=== PATIENT | female | born 1950 | race Caucasian/White ===

== ENCOUNTER → 2018-02-05 13:33 | Outpatient (REF) | payer SELFPAY | LOC: OM 13:33 | PROVIDERS: PCP Nurse Practitioner; Visit Provider Nurse Practitioner Family | DX: Z02.79 Encounter for issue of other medical certificate (principal) ==

== ENCOUNTER → 2018-02-18 08:58 | Outpatient (CLI) | payer MEDICARE, OTHER, SELFPAY ==
--- NOTE | 2018-02-18 09:02 | MERGE_ITS ---
*[facility]* *[facility]* [address] [place] [address] Date of study: 02/18/2018 Transthoracic Echocardiography M-mode, complete 2D, complete spectral Doppler, and color Doppler *STUDY CONCLUSIONS* Summary: 1. Left ventricle: The cavity size was normal. Wall thickness was normal. Systolic function was normal. The estimated ejection fraction was 60-65%. Wall motion was normal; there were no regional wall motion abnormalities. Some parameters suggest diastolic dysfunction. 2. Aortic valve: Sclerosis without stenosis. There was mild regurgitation. 3. Mitral valve: There was mild regurgitation. 4. Right ventricle: The cavity size was normal. Wall thickness was normal. Systolic function was normal. 5. Pulmonary arteries: Pulmonary systolic pressure was increased, in the range of 40mm Hg to 45mm Hg. *PATIENT PRESENTATION* Height: 157.5cm ((62in) ) S/D Pressure: 168 / 72 Weight: 86.2kg ((189.6lb) ) BSA: 1.98m^2 Test start time: 09:15 AM. Test stop time: 10:00 AM. PERFORMING Unknown PERFORMING [facility] DIRECTOR OF PUBLIC WORKS RT Jeronimo Huang)(CT), [facility] ORDERING Kellie Manjarrez Joyce A *PROCEDURE DATA* Procedure information: The patient was identified by two identifiers. This study was interpreted by [facility]. Pertinent images and digital data are archived for permanent storage and are available for subsequent review. Comparison was made to the study of 04/21/2012. Study status: Routine. Transthoracic echocardiography. M-mode, complete 2D, complete spectral Doppler, and color Doppler. A Transthoracic Echocardiogram was performed. Scanning was performed from the parasternal, apical, subcostal, and suprasternal notch acoustic windows. Images were obtained using an [id number] cardiac ultrasound machine. Image quality was adequate. Study completion: The patient tolerated the procedure well. There were no complications. History: PMH: Cardiac murmur. *CARDIAC ANATOMY* Left ventricle: The cavity size was normal. Wall thickness was normal. Systolic function was normal. The estimated ejection fraction was 60-65%. Wall motion was normal; there were no regional wall motion abnormalities. Some parameters suggest diastolic dysfunction. Aortic valve: Trileaflet; mildly thickened leaflets. Sclerosis without stenosis. Mobility was not restricted. Doppler: Transvalvular velocity was within the normal range. There was no stenosis. There was mild regurgitation. VTI ratio of LVOT to aortic valve: 0.5. Valve area (VTI): 1.6cm^2. Indexed valve area (VTI): 0.8cm^2/m^2. Peak velocity ratio of LVOT to aortic valve: 0.42. Valve area (Vmax): 1.4cm^2. Indexed valve area (Vmax): 0.7cm^2/m^2. Mean velocity ratio of LVOT to aortic valve: 0.48. Valve area (Vmean): 1.6cm^2. Indexed valve area (Vmean): 0.8cm^2/m^2. Mean gradient (S): 8.9mm Hg. Peak gradient (S): 20.2mm Hg. Aorta: Aortic root: The aortic root was normal in size. Ascending aorta: The ascending aorta was normal in size. Mitral valve: Mildly thickened leaflets. Mobility was not restricted. Doppler: Transvalvular velocity was within the normal range. There was no evidence for stenosis. There was mild regurgitation. Valve area by pressure half-time: 3.8cm^2. Indexed valve area by pressure half-time: 1.9cm^2/m^2. Peak gradient (D): 2.7mm Hg. Left atrium: The atrium was normal in size. Right ventricle: The cavity size was normal. Wall thickness was normal. Systolic function was normal. Pulmonic valve: Doppler: Transvalvular velocity was within the normal range. There was no evidence for stenosis. There was no significant regurgitation. Tricuspid valve: Structurally normal valve. Doppler: Transvalvular velocity was within the normal range. There was no evidence for stenosis. There was mild regurgitation. Pulmonary artery: Pulmonary systolic pressure was increased, in the range of 40mm Hg to 45mm Hg. Right atrium: The atrium was normal in size. Pericardium: There was no pericardial effusion. Systemic veins: Inferior vena cava: Not well visualized. The vessel was patent and normal in size. The respirophasic diameter changes were in the normal range (greater than or equal to 50%). Baseline ECG: Normal sinus rhythm. Measurements Left ventricle Value Reference LV ID, ED, PLAX 5.2 cm 3.5 - 6.0 LV ID, ES, PLAX 3.5 cm 2.1 - 4.0 LV PW thickness, ED, PLAX 0.9 cm LV end-diastolic volume, 1-p A2C 105 ml LV ejection fraction, 1-p A2C 65 % LV end-diastolic volume, 1-p A4C 70 ml LV ejection fraction, 1-p A4C 62 % LV e', lateral 0.102 m/sec LV E/e', lateral 8 LV e', medial 0.073 m/sec LV E/e', medial 11 LV e', average 0.088 m/sec LV E/e', average 9 Ventricular septum Value Reference IVS thickness, ED, PLAX 0.9 cm LVOT Value Reference LVOT ID, A-P 2.0 cm LVOT area 3.3 cm^2 LVOT peak velocity, S 0.95 m/sec LVOT mean velocity, S 0.68 m/sec LVOT VTI, S 22.2 cm LVOT peak gradient, S 3.6 mm Hg LVOT mean gradient, S 2.1 mm Hg Stroke volume (SV), LVOT DP 72 ml Stroke index (SV/bsa), LVOT DP 36 ml/m^2 Aortic valve Value Reference Aortic valve peak velocity, S 2.2 m/sec Aortic valve mean velocity, S 1.4 m/sec Aortic valve VTI, S 44.7 cm Aortic mean gradient, S 8.9 mm Hg Aortic peak gradient, S 20.2 mm Hg VTI ratio, LVOT/AV 0.5 Aortic valve area, VTI 1.6 cm^2 Velocity ratio, peak, LVOT/AV 0.42 Aortic valve area, peak velocity 1.4 cm^2 Velocity ratio, mean, LVOT/AV 0.48 Aortic valve area, mean velocity 1.6 cm^2 Aortic valve area/bsa, mean velocity 0.8 cm^2/m^2 Aorta Value Reference Aortic root ID, ED 2.8 cm Ascending aorta ID, A-P, S 3.0 cm Left atrium Value Reference LA ID, A-P, ES 3.3 cm LA ID/bsa, A-P 1.7 cm/m^2 <=2.2 LA area, ES, A4C 17.7 cm^2 8.8 - 23.4 LA area, ES, A2C 19 cm^2 LA volume/bsa, ES, 1-p A4C 30 ml/m^2 LA volume, ES, 2-p 54 ml LA volume/bsa, ES, 2-p 27 ml/m^2 LA/aortic root ratio 1.19 Mitral valve Value Reference Mitral E-wave peak velocity 0.82 m/sec Mitral A-wave peak velocity 0.74 m/sec Mitral deceleration time 202 ms 150 - 230 Mitral pressure half-time 59 ms Mitral peak gradient, D 2.7 mm Hg Mitral E/A ratio, peak 1.11 Mitral valve area, PHT, DP 3.8 cm^2 Pulmonary veins Value Reference Pulmonary vein peak velocity, S 0.64 m/sec Pulmonary vein peak velocity, D 0.66 m/sec Pulmonary vein velocity ratio, peak, 0.97 S/D Pulmonary vein A-wave reversal peak 0.47 m/sec velocity Pulmonary vein A-wave reversal 144 ms duration Tricuspid valve Value Reference Tricuspid regurg peak velocity 3.4 m/sec Tricuspid peak RV-RA gradient 46.4 mm Hg Right atrium Value Reference RA area, ES, A4C 16 cm^2 8.3 - 19.5 Legend: (L) and (H) demarco values outside specified reference range. I have personally reviewed the images and have reviewed and edited the reported findings. Electronically signed by Alan Goetz 02/18/2018 11:27
== END ==
PROVIDERS: PCP Nurse Practitioner; Visit Provider Nurse Practitioner
DX: R01.1 Cardiac murmur, unspecified (principal); I08.0 Rheumatic disorders of both mitral and aortic valves
CPT/HCPCS: 93306

== ENCOUNTER 2018-04-20 15:24 | Outpatient (CLI) | payer MEDICARE, OTHER, SELFPAY ==
--- NOTE | 2018-04-20 11:38 | DI.RAD_ITS ---
SYMPTOM/DIAGNOSIS: THORACIC BACK PAIN, M54.6, H/O RIB FX, Z87.81 PA AND LATERAL CHEST AND RIGHT RIBS: The heart size is normal. The lungs are clear. No pneumothorax, infiltrate or effusion is seen. There are subacute or old appearing fractures of the right third through fifth ribs posteriorly and anterior fifth or seventh ribs. Additional fractures were demonstrated by previous CT which are not definitely visible. IMPRESSION: Old right rib fractures. No acute abnormality. THORACIC SPINE: No compression fractures are seen. There are endplate osteophytes. There is mild narrowing of the anterior disc spaces. The alignment appears normal. IMPRESSION: Degenerative changes. No evidence of fracture.
== END 2018-04-20 15:44 ==
PROVIDERS: PCP Nurse Practitioner; Visit Provider Nurse Practitioner
DX: M54.6 Pain in thoracic spine (principal); Z87.81 Personal history of (healed) traumatic fracture; M47.814 Spondylosis without myelopathy or radiculopathy, thoracic region
CPT/HCPCS: 71046; 71100; 72072

== ENCOUNTER 2018-12-04 07:47 | Outpatient (CLI) | payer MEDICARE, OTHER, SELFPAY ==
[2018-12-04 08:11] LABS: HCT 47.1 % (36.0-46.0); HGB 15.6 g/dL (12.0-15.5); Mean Corp. HGB Concentration 33.1 g/dL (32.0-36.0); Mean Corpuscular Hemoglobin 28.6 pg (27.0-33.0); Mean Corpuscular Volume 86.3 fL (80-95); Platelet Count 262 x1000/uL (130-400); RBC 5.46 m/cumm (4.00-5.20); RBC Distribution Width 13.5 % (11.7-14.6); White Blood Cell Count 8.53 k/cumm (4.4-10.8)
[2018-12-04 08:24] LABS: Hemoglobin A1C 5.8 % (4.5-6.2)
[2018-12-04 09:15] LABS: ALT 29 U/L (12-78); AST 18 U/L (15-37); Albumin 3.7 g/dL (3.4-5.0); Alkaline Phosphatase 107 U/L (46-116); Anion Gap 10.6 mmol/L (3-11); BUN 13 mg/dL (7-18); Bilirubin, Total 0.5 mg/dL (0.2-1.0); CO2 27.4 mmol/L (21.0-32.0); CREATININE 0.87 mg/dL (0.55-1.02); Calcium 8.7 mg/dL (8.5-10.1); Calculated LDL 109; Chloride 105 mmol/L (98-107); Cholesterol 173 mg/dL (50-200); Glucose 95 mg/dL (70-100); HDL Cholesterol 41 mg/dL (40-60); Potassium 4.2 mmol/L (3.5-5.1); Sodium 143 mmol/L (136-145); Triglyceride 118 mg/dL (30-150)
== END 2018-12-04 08:07 ==
PROVIDERS: PCP Nurse Practitioner; Visit Provider Nurse Practitioner
DX: E66.9 Obesity, unspecified (principal); R73.01 Impaired fasting glucose
CPT/HCPCS: 36415; 80053; 80061; 83721; 85027; 83036

== ENCOUNTER 2019-04-28 08:13 | Outpatient (CLI) | payer MEDICARE, OTHER, SELFPAY ==
[2019-04-28 09:40] LABS: Ferritin 91 ng/mL (8-388)
== END 2019-04-28 08:33 ==
PROVIDERS: PCP Nurse Practitioner; Visit Provider Nurse Practitioner
DX: M25.50 Pain in unspecified joint (principal)
CPT/HCPCS: 36415; 82728

== ENCOUNTER 2019-10-11 10:03 | Outpatient (CLI) | payer MEDICARE, OTHER, SELFPAY | END 2019-10-11 10:23 | PROVIDERS: PCP Nurse Practitioner; Visit Provider Nurse Practitioner | DX: I49.9 Cardiac arrhythmia, unspecified (principal); I47.1 Supraventricular tachycardia; I47.2 Ventricular tachycardia | CPT/HCPCS: 93225 ==

== ENCOUNTER 2019-10-13 08:04 | Outpatient (CLI) | payer MEDICARE, OTHER, SELFPAY ==
--- NOTE | 2019-10-14 08:36 | W.HOLTRPT ---
Date of service: 10/14/19 Time of Service: 08:36 Holter Monitor Report Holter Monitor Note: This is a 1 day Holter monitor ordered for the indication of irregular heartbeat. ?Patient was in normal sinus rhythm for the majority of the recording. ?There were 3 episodes of supraventricular tachycardia with the longest lasting 3 beats. There were rare premature atrial contractions. ?There was one episode of ventricular tachycardia which lasted a total of 5 beats at a rate of 163. ?There were occasional (3%) single ventricular ectopic beats. ?There were no episodes of atrial fibrillation no pauses greater than 3 seconds and no evidence of high degree heart block. ?There were no patient triggered events.
== END 2019-10-13 08:24 ==
PROVIDERS: PCP Nurse Practitioner; Visit Provider Nurse Practitioner
DX: I49.9 Cardiac arrhythmia, unspecified (principal); I47.1 Supraventricular tachycardia; I47.2 Ventricular tachycardia
CPT/HCPCS: 93226

== ENCOUNTER 2019-10-14 08:36 | Outpatient (CLI) | payer MEDICARE, OTHER, SELFPAY | END 2019-10-14 08:56 | PROVIDERS: PCP Nurse Practitioner; Visit Provider Internal Medicine Cardiovascular Disease | DX: I49.9 Cardiac arrhythmia, unspecified (principal); I47.1 Supraventricular tachycardia | CPT/HCPCS: 93227 ==

== ENCOUNTER 2020-01-19 03:56 | Outpatient (CLI) | payer MEDICARE, OTHER, SELFPAY ==
[2020-01-19 07:21] LABS: HGB 15.3 g/dL (12.0-15.5); Mean Corpuscular Hemoglobin 28.5 pg (27.0-33.0); Mean Platelet Volume 9.5 fL (8.0-11.0); Platelet Count 308 x1000/uL (130-400); RBC 5.36 m/cumm (4.00-5.20); RBC Distribution Width 14.1 % (11.7-14.6); White Blood Cell Count 11.86 k/cumm (4.4-10.8)
[2020-01-19 07:58] LABS: Hemoglobin A1C 6.1 % (3.8-5.6)
[2020-01-19 08:14] LABS: ALT 41 U/L (14-59); AST 25 U/L (15-37); Albumin 3.7 g/dL (3.4-5.0); Alkaline Phosphatase 82 U/L (46-116); Anion Gap 6.1 mmol/L (3-11); BUN 15 mg/dL (7-18); Bilirubin, Total 0.6 mg/dL (0.2-1.0); CO2 30.9 mmol/L (21.0-32.0); CREATININE 0.91 mg/dL (0.55-1.02); Calcium 9.3 mg/dL (8.5-10.1); Calculated LDL 102 mg/dL (<100); Chloride 102 mmol/L (98-107); Cholesterol 172 mg/dL (<200); Glucose 113 mg/dL (74-106); HDL Cholesterol 37 mg/dL (40-60); Potassium 3.1 mmol/L (3.5-5.1); Sodium 139 mmol/L (136-145); Total Protein 6.9 g/dL (6.4-8.2); Triglyceride 169 mg/dL (<150)
== END 2020-01-19 04:16 ==
PROVIDERS: PCP Nurse Practitioner; Visit Provider Nurse Practitioner
DX: E66.9 Obesity, unspecified (principal); G47.33 Obstructive sleep apnea (adult) (pediatric); I10 Essential (primary) hypertension; E61.1 Iron deficiency; R73.01 Impaired fasting glucose; R73.09 Other abnormal glucose
CPT/HCPCS: 36415; 80053; 80061; 85027; 83036

== ENCOUNTER → 2020-01-28 09:13 | Outpatient (BNVA) | payer MEDICARE, OTHER, SELFPAY | PROVIDERS: PCP Nurse Practitioner; Referring Provider Nurse Practitioner; Visit Provider Student in an Organized Health Care Education/Training Program | DX: M65.332 Trigger finger, left middle finger (principal) | CPT/HCPCS: 20550; 99203; 99214; J1030 ==

== ENCOUNTER 2020-07-27 03:01 | Outpatient (CLI) | payer MEDICARE, SELFPAY ==
[2020-07-27 10:50] LABS: Anion Gap 5.1 mmol/L (3-11); BUN 17 mg/dL (7-18); CO2 32.9 mmol/L (21.0-32.0); Calcium 9.1 mg/dL (8.5-10.1); Chloride 102 mmol/L (98-107); Estimated GFR 55.14 (mL/min/1.73m2); Glucose 101 mg/dL (74-106); Potassium 3.1 mmol/L (3.5-5.1); Sodium 140 mmol/L (136-145)
== END 2020-07-27 03:21 ==
PROVIDERS: PCP Nurse Practitioner; Visit Provider Nurse Practitioner
DX: R79.89 Other specified abnormal findings of blood chemistry (principal)
CPT/HCPCS: 36415; 80048

== ENCOUNTER → 2020-09-18 10:56 | Outpatient (BNVA) | payer MEDICARE, SELFPAY | PROVIDERS: PCP Nurse Practitioner; Referring Provider Nurse Practitioner; Visit Provider Student in an Organized Health Care Education/Training Program | DX: M65.332 Trigger finger, left middle finger (principal); Z98.890 Other specified postprocedural states | CPT/HCPCS: 99213 ==

== ENCOUNTER 2020-10-04 03:35 | Outpatient (CLI) | payer MEDICARE, SELFPAY ==
[2020-10-04 10:47] LABS: Anion Gap 9.1 mmol/L (3-11); BUN 18 mg/dL (7-18); CO2 29.9 mmol/L (21.0-32.0); Calcium 9.1 mg/dL (8.5-10.1); Chloride 101 mmol/L (98-107); Estimated GFR 55.14 (mL/min/1.73m2); Glucose 180 mg/dL (74-106); Sodium 140 mmol/L (136-145)
[2020-10-04 10:58] LABS: Potassium 2.9 mmol/L (3.5-5.1)
== END 2020-10-04 03:36 | disposition home or self-care (01) ==
LOC: LBO 03:35
PROVIDERS: PCP Nurse Practitioner; Visit Provider Nurse Practitioner
DX: R79.89 Other specified abnormal findings of blood chemistry (principal)
CPT/HCPCS: 36415; 80048

== ENCOUNTER 2020-10-10 06:15 | Day surgery (SDC) | payer MEDICARE, SELFPAY ==
[2020-10-10 06:15] VITALS: BP 147/83; PULSE 66; RESP 16; TEMP 37; O2SAT 98
--- NOTE | 2020-10-10 07:20 | W.PM.DSUDISC ---
Discharge Plan Disposition Patient Disposition: HOME Condition: Good Discharge Details Reason For Visit: LMF Trigger Finger Attending Provider: Eugenio Bella Primary Care Provider: Kellie Manjarrez Home Meds and New Rx's Prescriptions: New acetaminophen 500 mg tablet 1,000 mg PO Q8H PRN (Reason: pain) Qty: 30 RF: 3 Continued ropinirole 1 mg tablet 1 mg PO DAILY PRN (Reason: restless leg(s)) Qty: 90 RF: 3 aspirin 325 mg tablet 650 mg PO DAILY PRN (Reason: pain) RF: 0 ropinirole 2 mg tablet 2 mg PO HS Qty: 90 RF: 3 artifi.tears(hypromellose)(PF) 0.3 % drops See Rx Instructions .ROUTE .COMPLEX PRNRF: 0 chlorthalidone 50 mg tablet 50 mg PO DAILY Qty: 30 RF: 11 potassium chloride 20 mEq tablet extended release 40 meq PO DAILY Qty: 180 RF: 3 Changed ibuprofen 600 MG tablet 600 mg PO Q8H PRN PRNQty: 30 RF: 2 Discharge Instructions Stand Alone Forms: Shayne Burciaga Finger Release Referrals: Eugenio Bella MD [ [facility] STAFF PHYSICIAN] - Activity:: Activity as Tolerated Remove Dressings/Wound Care:: 48 hours Shower/Bathe:: 48 hours Diet:: As Tolerated Discharge Orders Discharge Orders: Discharge Order (Routine); Ordered 10/10/20 Ordered By: Eugenio Bella DS: Diagnosis Discharge Diagnosis (1) Trigger middle finger of left hand: Status: Acute
[2020-10-10] MEDS: Sodium Bicarbonate 50 MEQ/50 ML VIAL (07:25)
--- NOTE | 2020-10-10 07:48 | W.PM.OP ---
Date of service: 10/10/20 Time of Service: 07:48 Operative Note Operative Note DATE OF PROCEDURE: 10/10/20 PRE-OP DIAGNOSIS: Left Middle Finger Trigger Finger POST-OP DIAGNOSIS: same PROCEDURE: Left Middle Finger Trigger Release SURGEON: Eugenio Bella ANESTHESIA TYPE: Local By Surgeon Refer to Anesthesia Record ESTIMATED BLOOD LOSS: 5 PATHOLOGY: none sent TOURNIQUET TIME: 0 COMPLICATIONS: None Patient was transported to: same day Patient's condition: stable Indications: I have seen Carmita in clinic for symptoms of a trigger finger. The catching, clicking, locking, and pain limited function. The diagnosis of trigger finger was evident. The symptoms had not responded to conservative measures. I discussed trigger finger release with the patient. I reviewed the risks of the procedure to include, but not limited to, bleeding, infection, pain, stiffness, incomplete release, damage to nerves or vessels, continued catching, recurrence. Despite these risks, the patient elected to proceed. Findings: There was a tightened A1 kris which was released. The flexor tendons were inspected and the patient was able to move the finger without any catching, clicking, or locking. Procedure Description: Carmita was greeted in the preoperative holding area where the correct side was identified and marked. The consent was reviewed with the patient and signed. All questions were answered. She was taken back to the operating room. The patient was placed into the supine position on the operating room table with the left arm on an arm board. All bony prominences were well padded. No prophylactic antibiotics were administered since this was a clean, elective hand surgical case. The left arm was then prepped with Chloraprep and draped in a standard fashion with stockinette and extremity drape. A timeout to confirm correct identity, side and site, procedure, allergies, anesthesia, and medical concerns was performed. The surgical site was marked as a longitudinal incision directly over the A1 kris of the involved digit. This was confirmed with palpation during finger flexion. This area, overlying the metacarpal head, was then anesthetized with 1% Lidocaine. The patient tolerated this well and once the anesthetic had setup, the procedure began. A longitudinal incision was made through skin only, approximately 1cm. The deep tissues were dissected bluntly. Once the A1 kris and flexor tendons were identified the soft tissue including neurovascular structures were retracted medially and laterally. There were no crossing structures over the A1 kris. The proximal edge of the kris was identified and the kris was incised with tenotomy scissors. There was a release of the tendons once this was fully released. The tendons were then removed from the wound and inspected. Excess synovium was resected. The tendons were then returned and the patient was asked to move the finger into deep flexion and back to extension. There was no recreation of the pre-operative symptoms. The hand was then once more inspected for any A0 kris or area of possible constriction. The wound was then irrigated and the skin was closed with a 4-0 Nylon. This was dressed with gauze and a Conform dressing. The patient tolerated the procedure well and was returned to the Same Day Surgery area in a stable condition suffering no known complication.
== END 2020-10-10 08:05 | disposition home or self-care (01) ==
PROVIDERS: PCP Nurse Practitioner; Visit Provider Student in an Organized Health Care Education/Training Program
PROC: (CPT 26055; principal; 2020-10-10 07:30)
DX: M65.332 Trigger finger, left middle finger (principal)
CPT/HCPCS: 26055

== ENCOUNTER → 2020-10-20 10:15 | Outpatient (BNVA) | payer MEDICARE, SELFPAY | PROVIDERS: PCP Nurse Practitioner; Referring Provider Nurse Practitioner; Visit Provider Student in an Organized Health Care Education/Training Program ==

== ENCOUNTER 2021-02-19 03:09 | Outpatient (CLI) | payer MEDICARE, SELFPAY ==
[2021-02-19 10:54] LABS: Potassium 3.2 mmol/L (3.5-5.1)
== END 2021-02-19 03:10 | disposition home or self-care (01) ==
LOC: LBO 03:09
PROVIDERS: PCP Nurse Practitioner; Visit Provider Nurse Practitioner
DX: E87.6 Hypokalemia (principal)
CPT/HCPCS: 36415; 84132

== ENCOUNTER 2021-06-20 15:13 | Outpatient (REF) | payer MEDICARE, SELFPAY ==
[2021-06-22 19:37] LABS: COVID-19 RT-PCR UVMMC Result Positive (Negative)
== END 2021-06-20 15:14 | disposition home or self-care (01) ==
LOC: LBN 15:13
PROVIDERS: PCP Nurse Practitioner; Visit Provider Nurse Practitioner
DX: Z20.822 Contact with and (suspected) exposure to COVID-19 (principal); R05.8 Other specified cough
CPT/HCPCS: U0003

== ENCOUNTER 2022-04-16 03:35 | Outpatient (CLI) | payer MEDICARE, SELFPAY ==
[2022-04-16 08:34] LABS: HCT 46.1 % (36.0-46.0); HGB 15.6 g/dL (11.2-15.7); MCH 28.4 pg (27.0-33.0); MCHC 33.8 % (32.0-36.0); MCV 84 fL (80-95); MPV 9.3 fL (8.0-11.0); Platelet Count 325 10^3/uL (130-400); RBC 5.49 10^6/uL (3.93-5.22); RDW 13.2 % (11.7-14.6); RDW-SD 40.8 fL; WBC 12.34 10^3/uL (4.4-10.8)
[2022-04-16 08:49] LABS: Hemoglobin A1C 6.2 % (<5.7)
[2022-04-16 09:30] LABS: ALT 41 U/L (14-59); AST 27 U/L (15-37); Albumin 3.7 g/dL (3.4-5.0); Alkaline Phosphatase 93 U/L (46-116); Anion Gap 6.9 mmol/L (3-11); BUN 12 mg/dL (7-18); Bilirubin, Total 0.6 mg/dL (0.2-1.0); CO2 31.1 mmol/L (21.0-32.0); CREATININE 0.9 mg/dL (0.55-1.02); Calcium 9.2 mg/dL (8.5-10.1); Calculated LDL 125 mg/dL (<100); Chloride 103 mmol/L (98-107); Cholesterol 194 mg/dL (<200); Estimated GFR 68.77 (mL/min/1.73m2); Glucose 112 mg/dL (74-106); HDL Cholesterol 46 mg/dL (40-60); Potassium 3.2 mmol/L (3.5-5.1); Sodium 141 mmol/L (136-145); Total Protein 7.5 g/dL (6.4-8.2); Triglyceride 118 mg/dL (<150)
== END 2022-04-16 03:36 | disposition home or self-care (01) ==
LOC: LBO 03:35
PROVIDERS: PCP Nurse Practitioner; Referring Provider Nurse Practitioner; Visit Provider Nurse Practitioner
DX: I10 Essential (primary) hypertension (principal); R73.03 Prediabetes; M79.671 Pain in right foot
CPT/HCPCS: 36415; 80053; 80061; 85027; 83036

== ENCOUNTER → 2022-06-11 01:36 | Outpatient (CLI) | payer MEDICARE, SELFPAY ==
--- NOTE | 2022-06-11 07:15 | DI.DEXA_ITS ---
Exam(s) XR DEXA BONE DENSITY W/WO ELHAM EXAM: XR DEXA BONE DENSITY W/WO [place]HAM CLINICAL HISTORY: screening for osteoporosis in postmenopausal woman,z78.0 TECHNIQUE: COMPARISON: No exams were available for comparison FINDINGS: Lateral Spine Image: Unremarkable. No compression deformities identified. Left hip: Total T-Score: 1.1 Total Z-Score: 2.6 T- and Z-scores: Within normal limits. Lumbar Spine: Total T-Score: 1.2 Total Z-Score: 3.4 T- and Z-scores: Within normal limits. IMPRESSION: No evidence of osteoporosis.
== END ==
PROVIDERS: PCP Nurse Practitioner; Visit Provider Nurse Practitioner
DX: Z78.0 Asymptomatic menopausal state (principal); Z13.820 Encounter for screening for osteoporosis
CPT/HCPCS: 77080

== ENCOUNTER 2022-08-19 02:46 | Outpatient (CLI) | payer MEDICARE, SELFPAY ==
[2022-08-19 13:21] LABS: Abs Immature Grans 0.07 10^3/uL (0.0-0.06); Absolute Basophil Count 0.07 10^3/uL (0.0-0.2); Absolute Eosinophil Count 0.16 10^3/uL (0.0-0.7); Absolute Lymphocyte Count 3.75 10^3/uL (1.2-3.4); Absolute Monocyte Count 0.85 10^3/uL (0.1-0.8); Basophils % 0.6; Eosinophils % 1.3; HCT 45.9 % (36.0-46.0); HGB 14.9 g/dL (11.2-15.7); Immature Grans % 0.6; Lymphocytes % 30.7; MCH 27.7 pg (27.0-33.0); MCHC 32.5 % (32.0-36.0); MCV 86 fL (80-95); MPV 9.5 fL (8.0-11.0); Neutrophils % 59.8; Platelet Count 302 10^3/uL (130-400); RBC 5.37 10^6/uL (3.93-5.22); RDW 13.4 % (11.7-14.6); RDW-SD 41.9 fL; WBC 12.21 10^3/uL (4.4-10.8)
[2022-08-19 13:43] LABS: Hemoglobin A1C 6.5 % (<5.7)
[2022-08-19 13:45] LABS: Anion Gap 7.9 mmol/L (3-11); BUN 11 mg/dL (7-18); CO2 31.1 mmol/L (21.0-32.0); CREATININE 0.9 mg/dL (0.55-1.02); Calcium 9.3 mg/dL (8.5-10.1); Chloride 103 mmol/L (98-107); Estimated GFR 68.77 (mL/min/1.73m2); Glucose 158 mg/dL (74-106); Sodium 142 mmol/L (136-145)
== END 2022-08-19 02:47 | disposition home or self-care (01) ==
LOC: LBO 02:46
PROVIDERS: PCP Nurse Practitioner; Visit Provider Nurse Practitioner
DX: R73.03 Prediabetes (principal); R79.89 Other specified abnormal findings of blood chemistry; I10 Essential (primary) hypertension; G25.81 Restless legs syndrome
CPT/HCPCS: 36415; 80048; 83036; 85025

== ENCOUNTER 2022-12-02 03:35 | Outpatient (CLI) | payer MEDICARE, SELFPAY ==
[2022-12-02 08:55] LABS: Abs Immature Grans 0.06 10^3/uL (0.0-0.06); Absolute Basophil Count 0.06 10^3/uL (0.0-0.2); Absolute Eosinophil Count 0.14 10^3/uL (0.0-0.7); Absolute Lymphocyte Count 3.45 10^3/uL (1.2-3.4); Absolute Monocyte Count 0.73 10^3/uL (0.1-0.8); Absolute Neutrophil Count 6.85 10^3/uL (1.2-6.7); Basophils % 0.5; Eosinophils % 1.2; HCT 45.2 % (36.0-46.0); HGB 14.8 g/dL (11.2-15.7); Immature Grans % 0.5; Lymphocytes % 30.6; MCH 28.2 pg (27.0-33.0); MCHC 32.7 % (32.0-36.0); MCV 86 fL (80-95); MPV 9.5 fL (8.0-11.0); Monocytes % 6.5; Neutrophils % 60.7; Platelet Count 286 10^3/uL (130-400); RBC 5.25 10^6/uL (3.93-5.22); RDW 13.6 % (11.7-14.6); RDW-SD 42.9 fL; WBC 11.29 10^3/uL (4.4-10.8)
[2022-12-02 09:10] LABS: Hemoglobin A1C 6.1 % (<5.7)
[2022-12-02 09:38] LABS: Anion Gap 6.5 mmol/L (3-11); BUN 18 mg/dL (7-18); CO2 27.5 mmol/L (21.0-32.0); CREATININE 0.9 mg/dL (0.55-1.02); Chloride 105 mmol/L (98-107); Estimated GFR 68.77 (mL/min/1.73m2); Glucose 107 mg/dL (74-106); Sodium 139 mmol/L (136-145)
== END 2022-12-02 03:36 | disposition home or self-care (01) ==
LOC: LBO 03:35
PROVIDERS: PCP Nurse Practitioner; Referring Provider Nurse Practitioner; Visit Provider Nurse Practitioner
DX: E11.9 Type 2 diabetes mellitus without complications (principal); D72.829 Elevated white blood cell count, unspecified; R79.89 Other specified abnormal findings of blood chemistry
CPT/HCPCS: 36415; 80048; 83036; 85025

== ENCOUNTER → 2023-03-11 10:52 | Outpatient (CLI) | payer MEDICARE, SELFPAY ==
--- NOTE | 2023-03-11 10:15 | DI.RAD_ITS ---
Exam(s) XR KNEE RT 3V AP,LAT,DANIEL EXAM: XR KNEE RT 3V AP,LAT,DANIEL CLINICAL HISTORY: pain for 2 mos, no injury,m25.561. TECHNIQUE: 2D digital imaging was performed. Three views. COMPARISON: No exams were available for comparison FINDINGS: BONES: No acute fracture is present. No bony destructive lesion is seen. JOINTS: The knee is normally aligned. A small joint effusion is seen. Mild narrowing medial femoral tibial joint space. No significant periarticular spurring. SOFT TISSUE: Normal. IMPRESSION: Mild degenerative changes. DATA REPOSITORY: RADIATION DOSE DELIVERED:
== END ==
PROVIDERS: PCP Nurse Practitioner; Visit Provider Nurse Practitioner
DX: M25.561 Pain in right knee (principal)
CPT/HCPCS: 73562

== ENCOUNTER → 2023-03-24 12:32 | Outpatient (CLI) | payer MEDICARE, SELFPAY ==
--- NOTE | 2023-03-24 10:00 | DI.RAD_ITS ---
Exam(s) XR FOOT RT COMPLETE EXAM: XR FOOT RT COMPLETE CLINICAL HISTORY: neuritis (2nd 3rd toe),FOOT PAIN,M79.673,M79.2. TECHNIQUE: 2D digital imaging was performed. COMPARISON: CR XR FOOT LT COMPLETE from 03/24/2023 FINDINGS: 3 views No evidence of acute fracture nor diastasis of the Lisfranc joint. Moderate size inferior calcaneal spur is noted. No pes planus. No obvious degenerative changes. Great toe metatarsophalangeal joint appears unremarkable. Bone density normal. No osseous lesions. IMPRESSION: No significant osseous findings in the right foot. Inferior calcaneal spur noted. DATA REPOSITORY: RADIATION DOSE DELIVERED:
--- NOTE | 2023-03-24 10:00 | DI.RAD_ITS ---
Exam(s) XR FOOT LT COMPLETE EXAM: XR FOOT LT COMPLETE CLINICAL HISTORY: comparison xray to R foot,PAIN,M79.673. TECHNIQUE: 2D digital imaging was performed of the left foot. Three images were obtained. AP, obli que and lateral views were obtained. COMPARISON: No exams were available for comparison FINDINGS: BONES: No acute fracture is present. No bony destructive lesion is seen. There is a plantar calcaneal spur. There is an enthesophyte at the posterior calcaneus. JOINTS: No dislocation present. The joint spaces are well maintained. SOFT TISSUE: Normal. IMPRESSION: No acute abnormality. DATA REPOSITORY: RADIATION DOSE DELIVERED:
== END ==
PROVIDERS: PCP Nurse Practitioner; Visit Provider Podiatrist
DX: M79.672 Pain in left foot (principal); M79.671 Pain in right foot
CPT/HCPCS: 73630

== ENCOUNTER → 2023-11-18 09:23 | Outpatient (BNVA) | payer MEDICARE, SELFPAY | PROVIDERS: PCP Nurse Practitioner; Referring Provider Nurse Practitioner; Visit Provider Podiatrist | DX: G57.61 Lesion of plantar nerve, right lower limb; M79.671 Pain in right foot; M67.01 Short Achilles tendon (acquired), right ankle | CPT/HCPCS: 64455; J0702; J1100 ==

== ENCOUNTER → 2024-01-20 14:48 | Outpatient (BNVA) | payer MEDICARE, SELFPAY | PROVIDERS: PCP Nurse Practitioner; Referring Provider Nurse Practitioner; Visit Provider Podiatrist | DX: G57.61 Lesion of plantar nerve, right lower limb (principal); M67.01 Short Achilles tendon (acquired), right ankle; M79.671 Pain in right foot | CPT/HCPCS: 99213 ==

== ENCOUNTER 2024-02-09 02:40 | Outpatient (CLI) | payer MEDICARE, SELFPAY ==
--- NOTE | 2024-02-09 06:45 | DI.MRI_ITS ---
Exam(s) MR LOWER EXTREMITY RT WO EXAM: MR LOWER EXTREMITY RT WO CLINICAL HISTORY: ? neuroma,? bursa,lesion plantar nerve rt lower limb,G57.61. TECHNIQUE: Multiplanar multisequence MRI was performed. COMPARISON: CR XR FOOT RT COMPLETE from 03/24/2023 FINDINGS: BONES/JOINTS: No evidence of fracture. No evidence of bone lesion. No joint space narrowing identifie d. There is a small amount of fluid within the 1st MTP joint. LIGAMENTS: The medial and lateral collateral ligaments are intact. MUSCULOTENDINOUS STRUCTURES: Visualized portion of the planar fascia is unremarkable. The visualized intrinsic muscles and tendons of the foot are unremarkable. SOFT TISSUES: There is hyperintense fluid seen between the heads of the 1st and 2nd metatarsals and t he 2nd and 3rd metatarsal suspicious for bursitis. No mass is appreciated. There is mild edema seen in the soft tissues on the plantar surface of the foot adjacent to the heads of the 2nd and 3rd meta tarsals. OTHER FINDINGS: None. IMPRESSION: There is hyperintense fluid seen between the head of the 1st and 2nd metatarsals in the 2nd and 3rd m etatarsal suspicious for intermetatarsal bursitis. No soft tissue mass is appreciated. DATA REPOSITORY:
== END 2024-02-09 03:00 ==
PROVIDERS: PCP Nurse Practitioner; Visit Provider Podiatrist
DX: G57.61 Lesion of plantar nerve, right lower limb (principal)
CPT/HCPCS: 73718

== ENCOUNTER 2024-04-19 10:55 | Outpatient (CLI) | payer MEDICARE, SELFPAY ==
[2024-04-19 11:06] LABS: Abs Immature Grans 0.05 10^3/uL (0.0-0.06); Absolute Basophil Count 0.06 10^3/uL (0.0-0.2); Absolute Eosinophil Count 0.13 10^3/uL (0.0-0.7); Absolute Lymphocyte Count 3.56 10^3/uL (1.2-3.4); Absolute Monocyte Count 1.01 10^3/uL (0.1-0.8); Absolute Neutrophil Count 6.37 10^3/uL (1.2-6.7); Basophils % 0.5 %; Eosinophils % 1.2 %; HCT 45.3 % (36.0-46.0); HGB 14.4 g/dL (11.2-15.7); Immature Grans % 0.4 %; Lymphocytes % 31.9 %; MCH 27.9 pg (27.0-33.0); MCHC 31.8 % (32.0-36.0); MCV 88 fL (80-95); MPV 9.3 fL (8.0-11.0); Platelet Count 269 10^3/uL (130-400); RBC 5.16 10^6/uL (3.93-5.22); RDW 13.6 % (11.7-14.6); RDW-SD 44.1 fL; WBC 11.17 10^3/uL (4.4-10.8)
[2024-04-19 11:15] LABS: Hemoglobin A1C 5.7 % (<5.7)
[2024-04-19 12:19] LABS: ALT 21 U/L (14-59); AST 16 U/L (15-37); Albumin 3.6 g/dL (3.4-5.0); Alkaline Phosphatase 103 U/L (46-116); Anion Gap 4.9 mmol/L (3-11); BUN 13 mg/dL (7-18); Bilirubin, Total 0.37 mg/dL (0.2-1.0); CO2 31.1 mmol/L (21.0-32.0); CREATININE 0.8 mg/dL (0.55-1.02); Calcium 8.9 mg/dL (8.5-10.1); Calculated LDL 106 mg/dL (<100); Chloride 110 mmol/L (98-107); Cholesterol 173 mg/dL (<200); Estimated GFR 78.24 (mL/min/1.73m2); Glucose 84 mg/dL (74-106); HDL Cholesterol 51 mg/dL (40-60); Potassium 4.1 mmol/L (3.5-5.1); Sodium 146 mmol/L (136-145); TSH (W/Ref FT4) 1.41 uIU/mL (0.36-3.74); Triglyceride 81 mg/dL (<150)
== END 2024-04-19 10:56 | disposition home or self-care (01) ==
LOC: LBO 10:56
PROVIDERS: PCP Nurse Practitioner; Visit Provider Nurse Practitioner
DX: R73.03 Prediabetes (principal); E66.9 Obesity, unspecified; I10 Essential (primary) hypertension; Z00.00 Encounter for general adult medical examination without abnormal findings
CPT/HCPCS: 36415; 80053; 80061; 83036; 84443; 85025

== ENCOUNTER 2025-01-10 11:44 | Outpatient (REF) | payer MEDICARE, SELFPAY | END 2025-01-10 11:45 | disposition home or self-care (01) | LOC: LBN 11:44 | PROVIDERS: PCP Nurse Practitioner; Visit Provider Nurse Practitioner Adult Health | DX: S41.101A Unspecified open wound of right upper arm, initial encounter (principal); L03.113 Cellulitis of right upper limb; X58.XXXA Exposure to other specified factors, initial encounter | CPT/HCPCS: 87077; 87070; 87186; 87205 ==

== ENCOUNTER → 2025-01-13 09:51 | Outpatient (BNVA) | payer MEDICARE, SELFPAY | PROVIDERS: PCP Nurse Practitioner; Referring Provider Nurse Practitioner; Visit Provider Physical Therapy Assistant | DX: L72.8 Other follicular cysts of the skin and subcutaneous tissue (principal) | CPT/HCPCS: 10061 ==

== ENCOUNTER → 2025-01-19 14:24 | Outpatient (BNVA) | payer MEDICARE, SELFPAY | PROVIDERS: PCP Nurse Practitioner; Referring Provider Nurse Practitioner; Visit Provider Physical Therapy Assistant | DX: Z09 Encounter for follow-up examination after completed treatment for conditions other than malignant neoplasm (principal) | CPT/HCPCS: 99024 ==

== ENCOUNTER 2025-04-29 03:43 | Outpatient (CLI) | payer MEDICARE, SELFPAY ==
[2025-04-29 08:44] LABS: Hemoglobin A1C 5.7 % (<5.7)
[2025-04-29 08:57] LABS: Anion Gap 6.4 mmol/L (3-11); BUN 12 mg/dL (7-18); CO2 30.6 mmol/L (21.0-32.0); Calcium 8.7 mg/dL (8.5-10.1); Chloride 106 mmol/L (98-107); Cholesterol 165 mg/dL (<200); Glucose 105 mg/dL (74-106); HDL Cholesterol 47 mg/dL (>or=50); Potassium 4.0 mmol/L (3.5-5.1); Sodium 143 mmol/L (136-145); Vitamin B12 467 pg/mL (193-986)
== END 2025-04-29 03:44 | disposition home or self-care (01) ==
LOC: LBO 03:43
DX: G25.81 Restless legs syndrome (principal); I10 Essential (primary) hypertension; E66.9 Obesity, unspecified; R73.09 Other abnormal glucose
CPT/HCPCS: 36415; 80048; 80061; 82607; 83036